=== PATIENT | male | born 1955 | race Caucasian/White ===

== ENCOUNTER 2017-02-24 06:57 | Emergency (ER) | payer OTHER ==
[~2017-02-24] VITALS: Ht 182.9 cm; Wt 94.9 kg
[~2017-02-24 06:57] MED LIST: B-12 PO; BENADRYL25 MG PO; CARVEDILOL; CLARITIN10 MG PO; COREG3.125 M1 PO; CYANOCOBALAM1000 MCG PO; DAILY VITAMIN1 EAC8 PO; LEVOTHYROXINE125 MCG PO; LISINOPRIL5 MG PO; ONE-A-DAY MEN'1 EACH PO; PEPCID20 MG PO; PREDNISONE20 MG PO; PRINIVIL5 MG PO; PROTONIX40 MG PO; SYNTHROID125 MCG PO
[2017-02-24] MEDS ORDERED: NORVASC10 MG PO (07:20)
[2017-02-24] MEDS ORDERED: NORVASC5 MG PO (07:45)
[2017-02-24 08:01] LABS: EOSINOPHIL COUNT 0.2 K/uL (0-0.3); HEMATOCRIT 41.5 % (38.0-50.0); IMMATURE GRANULOCYTE (%) 0.3 % (0.0-0.7); INSTRUMENT ABS NEUTROPHIL CT 3.7 K/uL; LYMPHOCYTE COUNT 1.5 K/uL (1.0-2.8); MCHC 35.4 G/DL (30.0-36.0); MCV 81.9 FL (86-99); MONOCYTE (%) 7.4 % (3-12); MONOCYTE COUNT 0.4 K/uL (0-0.8); NEUTROPHIL (%) 62.5 % (45-76); NEUTROPHIL COUNT 3.7 K/uL (1.8-6.4); PLATELET COUNT 231 K/uL (156-360); RBC DIS.WIDTH-CV 12.1 % (11.8-14.6); RED BLOOD COUNT 5.07 M/uL (4.00-5.50)
[2017-02-24 08:09] LABS: INTER. NORMALIZED RATIO 1.1; PROTHROMBIN TIME 11.6 SEC (10.2-12.9)
[2017-02-24 08:12] LABS: CHLORIDE 99 mEq/L (99-109); POTASSIUM 3.9 mEq/L (3.7-5.4); SODIUM 132 mEq/L (136-147)
[2017-02-24 08:14] LABS: GLUCOSE 114 mg/dL (70-99)
[2017-02-24 08:16] LABS: ANION GAP 7 MEQ/L (2-14); TOTAL BILIRUBIN 0.7 mg/dL (0.0-1.0)
[2017-02-24 08:18] LABS: ALKALINE PHOSPHATASE 53 IU/L (3-129); GFR ESTIMATE (CALCULATED) > 59 mL/min/
[2017-02-24 08:19] LABS: UREA NITROGEN (BUN) 9 mg/dL (9-23)
[2017-02-24 08:21] LABS: LIPASE 19 U/L (1.0-51.0)
[2017-02-24 08:27] LABS: TROP-I INTERPRETATION NEGATIVE; TROPONIN-I < 0.01 ng/mL (0.0-0.30)
[2017-02-24 09:27] LABS: ADD MIUA? YES; BILIRUBIN NEGATIVE; BLOOD NEGATIVE; COLOR LT YELLOW ((YELLOW)); GLUCOSE (STRIP) NEGATIVE; KETONES NEGATIVE; LEUKOCYTES NEGATIVE; NITRITE NEGATIVE; PROTEIN (STRIP) NEGATIVE; UROBILINOGEN 0.2 MG/DL (0.2-1.0)
[2017-02-24 10:13] LABS: BACTERIA NONE SEEN /HPF; EPITHELIAL CELLS RARE /HPF; MUCUS TRACE /LPF; RED BLOOD CELLS 0-5 /HPF (0-5); UCUL ADDED? NO; WHITE BLOOD CELLS 0-5 /HPF (0-5)
[2017-02-24 12:02] LABS: TROP-I INTERPRETATION NEGATIVE; TROPONIN-I < 0.01 ng/mL (0.0-0.30)
[2017-02-24 12:26] VITALS: BP 151/93
== END 2017-02-24 12:28 | disposition home or self-care (01) ==
LOC: EME 06:57
PROVIDERS: Physician Assistant
DX: K29.70 Gastritis, unspecified, without bleeding (principal); E87.1 Hypo-osmolality and hyponatremia; I45.10 Unspecified right bundle-branch block; I10 Essential (primary) hypertension; E03.9 Hypothyroidism, unspecified
CPT/HCPCS: 71020; 76705; 80053; 81003; 83690; 84484; 85025; 85610; 93005; 99281; 99284; J7030; J7120